=== PATIENT | male | born 1980 | race African-American/Black ===

== ENCOUNTER 2021-07-16 16:45 | Inpatient (IN) | payer SELFPAY ==
[~2021-07-16] VITALS: Ht 185.4 cm; Wt 78.8 kg
[2021-07-16] MEDS ORDERED: ISOVUE-370 76% 100ML VIAL As Ordered ONE (20:58)
[2021-07-16 21:03] LABS: BASO % 0.2 % (0.0-1.0); EOS # 0.1 10^3/uL (0.0-0.5); EOS % 0.7 % (0.0-3.0); HEMATOCRIT 43.8 % (42.0-52.0); HEMOGLOBIN 14.2 g/dl (13.5-17.5); LYMPH # 2.5 10^3/uL (1.5-5.0); LYMPH % 13.3 % (24.0-44.0); MEAN CORPUSCULAR HEMOGLOBIN 25.4 pg (27.0-33.0); MEAN CORPUSCULAR HGB CONC 32.4 g/dl (32.0-36.5); MEAN CORPUSCULAR VOLUME 78.4 fl (80.0-96.0); MONO # 1.3 10^3/uL (0.0-0.8); MONO % 7.3 % (2.0-8.0); NEUTROPHILS # 14.4 10^3/uL (1.5-8.5); NEUTROPHILS % 78.1 % (36.0-66.0); PLATELET COUNT, AUTOMATED 497 10^3/uL (150-450); RED BLOOD COUNT 5.59 10^6/uL (4.30-6.10); WHITE BLOOD COUNT 18.4 10^3/uL (4.0-10.0)
[2021-07-16 21:27] LABS: ERYTHROCYTE SEDIMENTATION RATE 17 mm/hr (0-15)
[2021-07-16 21:34] LABS: ALT/SGPT 18 U/L (12-78); BILIRUBIN,TOTAL 0.4 MG/DL (0.2-1.0); BLOOD UREA NITROGEN 13 MG/DL (7-18); C REACTIVE PROTEIN QUANTITATIV 5.24 MG/DL (0.00-0.30); CALCIUM LEVEL 8.9 MG/DL (8.5-10.1); CARBON DIOXIDE LEVEL 28 MEQ/L (21-32); CHLORIDE LEVEL 104 MEQ/L (98-107); CREATININE FOR GFR 0.93 MG/DL (0.70-1.30); GLOMERULAR FILTRATION RATE > 60.0 (>60); GLUCOSE, FASTING 90 MG/DL (70-100); POTASSIUM SERUM 4.5 MEQ/L (3.5-5.1); SODIUM LEVEL 136 MEQ/L (136-145); TOTAL PROTEIN 7.7 GM/DL (6.4-8.2)
--- NOTE | 2021-07-16 23:13 | REPVR ---
PROCEDURE INFORMATION: Exam: CT Pelvis With Contrast Exam date and time: 07/16/2021 10:05 PM Age: 41 years old Clinical indication: Perianal pain; Additional info: Kay-rectal abscess bilat TECHNIQUE: Imaging protocol: Computed tomography images of the pelvis with intravenous contrast. Radiation optimization: All CT scans at this facility use at least one of these dose optimization techniques: automated exposure control; mA and/or kV adjustment per patient size (includes targeted exams where dose is matched to clinical indication); or iterative reconstruction. Contrast material: ISOVUE 370; Contrast volume: 100 ml; Contrast route: INTRAVENOUS (IV); COMPARISON: No relevant prior studies available. FINDINGS: Stomach and bowel: No bowel dilatation is noted. Appendix: A normal appendix is seen. Intraperitoneal space: Unremarkable. No free air. No significant fluid collection. Lymph nodes: Unremarkable. No enlarged lymph nodes. Urinary bladder: Normal. No mass. Reproductive: Normal as visualized. Bones/joints: The osseous structures appear to be intact. No fracture or erosion is noted. There is some degenerative change at the sacrococcygeal junction. Soft tissues: Perianal abscess posteriorly extending to the tip of the coccyx with a collection anterior just caudal to the coccygeal tip measuring approximately the 14 x 18 mm in diameter. Some collections of gas are noted. The abscess divides into some tracts with inflammatory confluence extending along the medial left buttocks and stranding which extends to the medial aspect of the left gluteus stephanie muscle. The foci of gas suggest a perianal fistula. On the right, there is a tract containing gas which extends along the medial aspect of the right gluteal musculature and then divergent is back into the medial right buttocks with an abscess collection measuring 3.0 x 2.2 x 3.6 cm. There is overlying skin thickening and infiltration of the surrounding gluteal fat. IMPRESSION: Posterior perianal abscess which extends cephalad to the tip of the coccyx and caudally extends into the medial aspect of the buttocks bilaterally. There is inflammatory thickening and confluence on the left without fluid collections. Foci of gas are noted which may reflect perianal fistula. There is an abscess in the caudal medial right buttocks just beneath the skin with a tract which extends from the perianal region along the medial aspect of the gluteus stephanie and then into the subcutaneous abscess which measures approximately 3.0 x 2.2 x 3.6 cm. Electronically signed by: Vivek Cherry On 07/16/2021 23:13:32 PM
[2021-07-16] MEDS ORDERED: MORPHINE 2 MG/ML 1ML VIAL (J2270) IV ONE (23:35)
[2021-07-16] MEDS ORDERED: CIPROFLOXACIN 400 MG in IV 1 EA IV ONE (23:35)
[2021-07-16] MEDS ORDERED: metroNIDAZOLE 500 MG in IV 1 EA IV ONE (23:50)
[2021-07-17] VITALS (7 sets, daily range): BP systolic 98–122; BP diastolic 58–88
[2021-07-17] MEDS ORDERED: MOM 30ML SUSPENSION UDC PO PRN (01:15)
[2021-07-17] MEDS ORDERED: ACETAMINOPHEN TAB 650MG DOSE (2X325MG) PO PRN (01:15)
[2021-07-17] MEDS ORDERED: MAALOX 30 ML SUSP *UDC PO PRN (01:15)
--- NOTE | 2021-07-17 01:17 | HPEPDOC ---
[facility] Medical History & Physical Date of Admission Jul 17, 2021 Date of Service: Jul 17, 2021 History and Physical CHIEF COMPLAINT: Rectal pain HISTORY OF PRESENT ILLNESS: 41-year-old male with a past medical history of rec urrent perianal abscesses presents to the ER with approximately a 3 to 4-day history of lower abdominal and perirectal pain. He is afebrile slightly tachycardic at 109 with a blood pressure of 185/105. Found to have a white count of 18.4. ESR 17. CMP within normal limits. Pelvic CT shows a posterior perianal abscess which extends to the tip of the coccyx and caudally extends into the medial aspect of the buttocks bilaterally. Foci of gas are noted which can represent perianal fistula. Finally there is an abscess in the caudal medial right buttocks beneath the skin with a tract which extends from the perianal region to the medial aspect of the gluteus stephanie and then into the subcutaneous abscess measuring approximately 3 x 2.2 x 3.6 cm. Patient was given Flagyl and ciprofloxacin in the ER. Dr. Manjarrez was consulted. Patient will be made n.p.o. admitted to hospitalist service. PAST MEDICAL HISTORY: Nicotine dependence Recurrent perianal abscesses PAST SURGICAL HISTORY: Drainage of perianal abscess SOCIAL HISTORY: Active smoker, 1 ppd. Patient denies etoh use Patient denies illicit drug use . ALLERGIES: Please see below. REVIEW OF SYSTEMS: 10 point ROS conducted, relevant findings are noted in HPI. HOME MEDICATIONS: Please see below. PHYSICAL EXAMINATION: VITAL SIGNS: please see below General: NAD, comfortable HEENT: PERRLA, EOMI, sclerae clear Neck: supple, normal ROM, no JVD Respiratory: lungs CTAB, no wheeze, no rales, no crackles CVS: RRR, normal S1, S2, no murmurs Abdo: soft, no masses, no hepatosplenomegaly, BS+, no rebound tenderness Extremities: no edema, pulses 2+ MSK: no joint deformities, normal ROM Neuro: no focal neuro deficits, moving all 4 extremities, CN2-12 intact. Strength 5/5 in all 4 extremities. No nystagmus. Psych: calm, cooperative, AAO x 3 LABORATORY DATA: See below. IMAGING: CT pelvis with IV contrast on 07/16/2021: FINDINGS: Stomach and bowel: No bowel dilatation is noted. Appendix: A normal appendix is seen. Intraperitoneal space: Unremarkable. No free air. No significant fluid collection. Lymph nodes: Unremarkable. No enlarged lymph nodes. Urinary bladder: Normal. No mass. Reproductive: Normal as visualized. Bones/joints: The osseous structures appear to be intact. No fracture or erosion is noted. There is some degenerative change at the sacrococcygeal junction. Soft tissues: Perianal abscess posteriorly extending to the tip of the coccyx with a collection anterior just caudal to the coccygeal tip measuring approximately the 14 x 18 mm in diameter. Some collections of gas are noted. The abscess divides into some tracts with inflammatory confluence extending along the medial left buttocks and stranding which extends to the medial aspect of the left gluteus stephanie muscle. The foci of gas suggest a perianal fistula. On the right, there is a tract containing gas which extends along the medial aspect of the right gluteal musculature and then divergent is back into the medial right buttocks with an abscess collection measuring 3.0 x 2.2 x 3.6 cm. There is overlying skin thickening and infiltration of the surrounding gluteal fat. IMPRESSION: Posterior perianal abscess which extends cephalad to the tip of the coccyx and caudally extends into the medial aspect of the buttocks bilaterally. There is inflammatory thickening and confluence on the left without fluid collections. Foci of gas are noted which may reflect perianal fistula. There is an abscess in the caudal medial right buttocks just beneath the skin with a tract which extends from the perianal region along the medial aspect of the gluteus stephanie and then into the subcutaneous abscess which measures approximately 3.0 x 2.2 x 3.6 cm. MICROBIOLOGY: Please see below. ASSESSMENT: 41-year-old male with a past medical history of recurrent perianal abscesses presents with lower abdominal and rectal pain along with a white count of 18. CT of the pelvis showing complex perianal abscess with fistulous tracts. Patient be admitted with surgical consultation. Started on ciprofloxacin and Flagyl. Patient will be n.p.o. for possible operative management in the morning. . PLAN: SIRS secondary to perianal abscess: Abscess culture sent. Patient started on ciprofloxacin and Flagyl. Blood culture sent. Surgical consultation with Dr. Manjarrez. Patient is n.p.o. for possible debridement/I&D in the morning. HTN: BP 180 systolic. Suspect elevated 2/2 pain. Titrate as needed. dispo: admission expect to last > 2 midnights Vital Signs Vital Signs Date Time Temp Pulse Resp B/P (MAP) Pulse Ox O2 Delivery O2 Flow Rate FiO2 07/17/21 00:22 16 98 Room Air 07/16/21 16:46 98.4 109 185/105 (131) Laboratory Data Labs 24H Laboratory Tests 2 07/16/21 20:54: Immature Granulocyte % (Auto) 0.4, Neutrophils (%) (Auto) 78.1H, Lymphocytes (%) (Auto) 13.3L, Monocytes (%) (Auto) 7.3, Eosinophils (%) (Auto) 0.7, Basophils (%) (Auto) 0.2, Neutrophils # (Auto) 14.4H, Lymphocytes # (Auto) 2.5, Monocytes # (Auto) 1.3H, Eosinophils # (Auto) 0.1, Basophils # (Auto) 0.0, Nucleated Red Blood Cells % (auto) 0.0, Erythrocyte Sedimentation Rate 17H, Anion Gap 4L, Glomerular Filtration Rate > 60.0, Calcium Level 8.9, Total Bilirubin 0.4, Aspartate Amino Transf (AST/SGOT) 23, Alanine Aminotransferase (ALT/SGPT) 18, Alkaline Phosphatase 88, C-Reactive Protein, Quantitative 5.24H, Total Protein 7.7, Albumin 3.0L, Albumin/Globulin Ratio 0.6 07/17/21 00:31: CBC/BMP Laboratory Tests 07/16/21 20:54 Microbiology Microbiology 07/16/21 Abscess Culture, Received Pending Home Medications No Active Prescriptions or Reported Meds Allergies Coded Allergies: No Known Allergies (Unverified , 07/16/21) MAXIMUS MI MD Jul 17, 2021 01:16
[2021-07-17] MEDS ORDERED: HOME MED LIST COMPLETE! XX SCH (02:25)
[2021-07-17] MEDS ORDERED: oxyCODONE 5MG TAB PO PRN ×2 (02:40→20:40)
[2021-07-17] MEDS ORDERED: MORPHINE 2 MG/ML 1ML VIAL (J2270) IV PRN (02:40)
[2021-07-17 06:16] LABS: BASO # 0.1 10^3/uL (0.0-0.2); BASO % 0.3 % (0.0-1.0); EOS # 0.1 10^3/uL (0.0-0.5); EOS % 0.7 % (0.0-3.0); HEMOGLOBIN 14.4 g/dl (13.5-17.5); MEAN CORPUSCULAR HEMOGLOBIN 25.4 pg (27.0-33.0); MEAN CORPUSCULAR HGB CONC 32.7 g/dl (32.0-36.5); MEAN CORPUSCULAR VOLUME 77.5 fl (80.0-96.0); MONO # 1.4 10^3/uL (0.0-0.8); MONO % 8.1 % (2.0-8.0); NEUTROPHILS % 73.3 % (36.0-66.0); PLATELET COUNT, AUTOMATED 518 10^3/uL (150-450); RED BLOOD COUNT 5.68 10^6/uL (4.30-6.10); WHITE BLOOD COUNT 17.8 10^3/uL (4.0-10.0)
[2021-07-17 06:38] LABS: ALBUMIN 2.9 GM/DL (3.2-5.2); ALT/SGPT 17 U/L (12-78); BILIRUBIN,TOTAL 0.5 MG/DL (0.2-1.0); BLOOD UREA NITROGEN 10 MG/DL (7-18); CALCIUM LEVEL 8.9 MG/DL (8.5-10.1); CARBON DIOXIDE LEVEL 27 MEQ/L (21-32); CHLORIDE LEVEL 102 MEQ/L (98-107); CREATININE FOR GFR 0.92 MG/DL (0.70-1.30); GLOMERULAR FILTRATION RATE > 60.0 (>60); GLUCOSE, FASTING 95 MG/DL (70-100); MAGNESIUM LEVEL 2.3 MG/DL (1.8-2.4); SODIUM LEVEL 136 MEQ/L (136-145); TOTAL PROTEIN 7.7 GM/DL (6.4-8.2)
[2021-07-17 06:39] LABS: INR 1.1; PROTHROMBIN TIME 14.7 SECONDS (12.7-14.5)
[2021-07-17] MEDS: metroNIDAZOLE 500 MG in IV 1 EA IV SCH ×3 (08:13→23:50)
--- NOTE | 2021-07-17 08:39 | CR.PDOC ---
General Surgery Consultation Date of Consultation 07/17/21 History and Physical CONSULT REPORT FOR: Dr. Valadez (hospitalist service) REASON FOR CONSULTATION: Bilateral perianal abscess HISTORY OF PRESENT ILLNESS: Patient is a 41-year-old male with history of recurrent perianal abscess who presented to the emergency room last night and subsequently admitted reporting a 3 to 4-day history of bilateral perirectal pain as well as 1 to 2-day history of drainage. He reports recurrent perianal abscess for the past 5 years about 2 ti mes a year. This usually will progress to spontaneous drainage with resolution of his symptoms. He denies any chronic drainage from any of this abscesses. He has never been seen in an emergency room setting nor in an outpatient surgical setting. No prior I&D's done. He denies any significant history for Crohn's disease, either familial or personal. He denies any chronic diarrhea or severe constipation. This episode has been ongoing for about 3 or 4 days. He reports drainage from the left side for the past day or so. He denies any fevers or chills. He reports severe discomfort, unable to sit down or lay on his buttocks area. In the emergency room he was evaluated and found to have elevated white cell count of 18.[address] findings of bilateral perianal abscess, possible horseshoe abscess. He has been started on IV antibiotics and was awaiting my evaluation for possible incision and drainage. PAST MEDICAL HISTORY: Denies any chronic medical problems. PAST SURGICAL HISTORY: INCLUDES: ALLERGIES: Please see below. FAMILY HISTORY: Denies any family history for Crohn's disease, inflammatory bowel disease. HOME MEDICATIONS: Please see below. REVIEW OF SYSTEMS: GENERAL: Denies any weight loss, fevers or chills HEENT: Denies any vision problems, hearing problems NECK: Denies any neck pain CARDIOVASCULAR: Denies chest pain and palpitations. MUSCULOSKELETAL: Denies arthralgias, back pain SKIN: Denies rash. NEUROLOGIC: Denies headache, weakness PSYCHIATRIC: Denies anxiety and depression. ENDOCRINE: Denies history of diabetes, polydipsia, polyphagia, polyuria. HEMATOLOGY/ONCOLOGY: Denies bleeding or clotting disorder. PULMONARY: Denies chronic cough, dyspnea and wheezing. GASTROINTESTINAL: See HPI no prior colonoscopies. GENITOURINARY: Denies dysuria, frequency, hematuria and nocturia. INFECTIOUS: Denies any recent upper respiratory tract infection, UTI, need for use of antibiotics. NUTRITION: Reports good appetite. PHYSICAL EXAMINATION: VITALS SIGNS: Please see below. GENERAL APPEARANCE: Patient seen laying on his stomach, not ill-appearing, mildly uncomfortable with movement.; Overall thin body habitus, does not look chronically ill SKIN: Warm and dry HEENT: Normal inspection LUNGS: Clear to auscultation bilaterally. HEART: Regular heart rate and rhythm. ABDOMEN: Abdomen is soft, benign, nontender, nondistended PERIANAL EXAM: No gross erythema around the buttock area but there are several years separate or congruent areas of soft tissue induration along both right and left perianal area which are tender on touch. He is nontender at the midline, coccygeal area. No noticeable erythema, skin thickening. There appears to be some chronic appearing scars from prior abscess, drainage. Due to the discomfort, the anal verge is not sufficiently visible or palpable. EXTREMITIES: No deformities, edema ANCILLARIES: WBC 18.4 CRP 5.24 LABORATORY DATA: Please see below. IMAGING STUDIES: Patient is CT pelvis I reviewed the images. He has a complex appearing skin and soft tissue induration as well as abscess collection primarily on the right side which may also have a midline component. 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 I will bring the patient to the operating room for examination under anesthesia, drain the abscess. I explained to him he may have 2 or more incision sites or wound openings. I suspect possibility of a horseshoe abscess as bilateral presentation is usually not common unless the patient has perianal Crohn's disease which he denies. He is quite uncomfortable on my examination. He does not look to be ill-appearing not having any signs of severe inflammatory response from this. I discussed with the patient the details of the proposed procedure, the benefits of performing the procedure, the most common risks on doing the procedure. This may include chronic wounds, possibility of perianal fistula, need for multiple surgeries for drainage, bleeding. Consent obtained from patient. Vital Signs Vital Signs Date Time Temp Pulse Resp B/P (MAP) Pulse Ox O2 Delivery O2 Flow Rate FiO2 07/17/21 08:13 18 Room Air 07/17/21 06:00 99.2 100 116/88 (97) 100 I&Os I&O- Last 24 Hours up to 6 AM 07/17/21 06:00 Intake Total 205 ml Balance 205 ml Laboratory Data Labs 24H Laboratory Tests 2 07/16/21 20:54: Immature Granulocyte % (Auto) 0.4, Neutrophils (%) (Auto) 78.1H, Lymphocytes (%) (Auto) 13.3L, Monocytes (%) (Auto) 7.3, Eosinophils (%) (Auto) 0.7, Basophils (%) (Auto) 0.2, Neutrophils # (Auto) 14.4H, Lymphocytes # (Auto) 2.5, Monocytes # (Auto) 1.3H, Eosinophils # (Auto) 0.1, Basophils # (Auto) 0.0, Nucleated Red Blood Cells % (auto) 0.0, Erythrocyte Sedimentation Rate 17H, Anion Gap 4L, G lomerular Filtration Rate > 60.0, Calcium Level 8.9, Total Bilirubin 0.4, Aspartate Amino Transf (AST/SGOT) 23, Alanine Aminotransferase (ALT/SGPT) 18, Alkaline Phosphatase 88, C-Reactive Protein, Quantitative 5.24H, Total Protein 7.7, Albumin 3.0L, Albumin/Globulin Ratio 0.6 07/17/21 00:31: Coronavirus (COVID-19)(PCR) NEGATIVE 07/17/21 05:48: Immature Granulocyte % (Auto) 0.6, Neutrophils (%) (Auto) 73.3H, Lymphocytes (%) (Auto) 17.0L, Monocytes (%) (Auto) 8.1H, Eosinophils (%) (Auto) 0.7, Basophils (%) (Auto) 0.3, Neutrophils # (Auto) 13.0H, Lymphocytes # (Auto) 3.0, Monocytes # (Auto) 1.4H, Eosinophils # (Auto) 0.1, Basophils # (Auto) 0.1, Nucleated Red Blood Cells % (auto) 0.0, Anion Gap 7L, Glomerular Filtration Rate > 60.0, Calcium Level 8.9, Total Bilirubin 0.5, Aspartate Amino Transf (AST/SGOT) 16, Alanine Aminotransferase (ALT/SGPT) 17, Alkaline Phosphatase 91, Total Protein 7.7, Albumin 2.9L, Albumin/Globulin Ratio 0.6, Prothrombin Time 14.7H, Prothromb Time International Ratio 1.10, Magnesium Level 2.3 CBC/BMP Laboratory Tests 07/16/21 20:54 07/17/21 05:48 Microbiology Microbiology 07/17/21 Blood Culture, Received Pending 07/16/21 Abscess Culture, Received Pending Home Medications No Active Prescriptions or Reported Meds Allergies Coded Allergies: No Known Allergies (Unverified , 07/16/21) IRIS TOLEDO MD Jul 17, 2021 08:39
[2021-07-17] MEDS ORDERED: KETOROLAC 30 MG/ML 1ML VIAL IV PRN (08:40)
[2021-07-17] MEDS ORDERED: MORPHINE 30 MG TAB **MSIR PO PRN (09:00)
[2021-07-17] MEDS ORDERED: MORPHINE 15 MG SA TAB PO ONE (09:00)
[2021-07-17] MEDS ORDERED: KETOROLAC 30 MG/ML 1ML VIAL IV ONE (09:00)
[2021-07-17] MEDS: CIPROFLOXACIN 400 MG in IV 1 EA IV SCH ×2 (09:33→21:29)
[2021-07-17] MEDS ORDERED: SUGAMMADEX SODIUM 500 MG/5 ML VIAL (BRIDION) As Ordered ONE (19:00)
[2021-07-17] MEDS ORDERED: ONDANSETRON 4MG/2ML VIAL As Ordered ONE (19:00)
[2021-07-17] MEDS ORDERED: fentaNYL 100 MCG/2 ML INJECTION (J3010) As Ordered ONE (19:00)
[2021-07-17] MEDS ORDERED: ROCURONIUM BROMIDE 50 MG/5 ML VIAL As Ordered ONE (19:00)
[2021-07-17] MEDS ORDERED: dexameTHASONE 4 MG/ML 1ML VIAL (J1100 PER 1MG) As Ordered ONE (19:00)
[2021-07-17] MEDS ORDERED: propofoL 200 MG/20 ML VIAL As Ordered ONE (19:00)
[2021-07-17] MEDS ORDERED: MIDAZOLAM INJ 2MG/2ML VIAL (J2250 PER 1MG) As Ordered ONE (19:00)
[2021-07-17] MEDS ORDERED: LIDOCAINE 2% 100MG/5ML SDV (FOR ANES.) As Ordered ONE (19:00)
[2021-07-17] MEDS ORDERED: BUPIVACAINE LIPOSOME/PF 1.3% 20ML VIAL (13.3MG/ML)(EXPAREL)(C9290 PER1MG) As Ordered ONE (19:28)
[2021-07-17] MEDS ORDERED: BUPIVACAINE HCL 0.25% 10ML VIAL As Ordered ONE (19:28)
[2021-07-17] MEDS ORDERED: ESMOLOL INJ 100MG/10ML VIAL As Ordered ONE (19:36)
[2021-07-17] MEDS ORDERED: ACETAMINOPHEN 1000MG 100ML IV BTL (OFIRMEV) (J0131 PER 10MG) As Ordered ONE (19:45)
[2021-07-17] MEDS ORDERED: METOCLOPRAMIDE INJ 10MG/2ML VIAL (J2765 PER 1) IV PRN (20:40)
[2021-07-17] MEDS ORDERED: fentaNYL 100 MCG/2 ML INJECTION (J3010) IV PRN (20:40)
[2021-07-17] MEDS ORDERED: LR 1,000 ML IV SCH (20:40)
[2021-07-17] MEDS ORDERED: ONDANSETRON 4MG/2ML VIAL IV PRN (20:40)
[2021-07-17] MEDS: MORPHINE 15 MG SA TAB PO SCH (21:30)
[2021-07-18 00:50] VITALS: BP 101/57
[2021-07-18 01:50] VITALS: BP 95/59
[2021-07-18 06:00] VITALS: BP 99/58
--- NOTE | 2021-07-18 07:42 | ROOPDOC ---
[facility] Report Of Operation Report of Operation DATE OF PROCEDURE: 07/18/21 PREPROCEDURE DIAGNOSES: bilateral perianal abscess. 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 PROCEDURE PERFORMED: Exam under anesthesia, drainage of multifocal bilateral perianal abscess. SURGEON: Reese Manjarrez MD ANESTHESIA: General Endotracheal Anesthesia. ESTIMATED BLOOD LOSS: Approximately 20 mL. COMPLICATIONS: none. REMARKS: 41-year-old male with chronic and recurrent drainage from very anal abscesses. FINDINGS: Multiple pockets of abscess bilaterally, chronic scars from prior abscesses. SPECIMENS REMOVED: Gram stain and culture of the abscess done DESCRIPTION OF PROCEDURE: Patient has been receiving scheduled doses of antibiotics for his malgorzata anal abscess since his presentation to the emergency room last evening. He has been getting ciprofloxacin 400 mg IV every 12 hours and metronidazole 500 mg every 8 hours. He was brought to the operating room, monitoring leads were placed, oxygen provided, bilateral sequential compression devices placed on both lower extremities for DVT prophylaxis. General endotracheal anesthesia established and then he was transferred in the prone position with pressure points padded on the procedure table. His buttocks were taped apart and the buttocks, lower leg and posterior thigh was then prepped and draped in the usual sterile fashion. We paused for a surgical timeout using both pre-incision safety checklist to verify correct patient, procedure site and additional clinical information prior to beginning the procedure On initial examination the bilateral medial aspect of the buttocks and both sides appears scarred in, boggy. The left worse than the right. The right appears fluctuant. The left side has multiple areas of scar, skin thickening an d small skin breakdowns where there is purulent drainage along the prior scars. The skin and subcutaneous thickening seems to extend slightly towards the posterior or coccygeal side. He has prominent skin tags especially at the posterior midline at the anal verge. Lax sphincter tone noted. I was also seeing some purulent material come out through the anal verge as well as some small skin openings from the thinning and skin breakdown on both sides of the buttocks. I inserted an anal speculum to look inside of the anal canal and the internal opening of the fistula seems much deeper closer to the rectum than the typical location just inside of the dentate line port and intersphincteric abscess on the right side. I initially worked on the left side where he has 2 particular areas where there is a small amount of purulent drainage. I infiltrated the area with a mixture of Exparel and 1 4% Marcaine. I made a cruciate incision at the more superior boggy area closer to the coccyx. The skin is thickened. I went got into the abscess cavity but only got a small amount of drainage. I then may separate incision fluid were there is more fluctuance. I deepened this and got into the cavity and inserted the suction get some more drainage from the area. I actually got more drainage from both opening while putting pressure from the rectum internally outward. I looked again inside and I did not see any internal opening from the left side. I made a separate incision on the right side and got more drainage as this is no fluctuance. He get into a cavity about 4 x 4 cm. Looking through the anal speculum I could not see any internal opening deep into the rectum. I then irrigated all 3 areas. This was then packed with 1/2 inch iodoform gauze. Placed bulky gauze dressing on top of this and. On the way to hold things in place. He was promptly awakened extubated and brought to recovery room in stable condition. REESE MANJARREZ MD Jul 18, 2021 07:42
[2021-07-18] MEDS: metroNIDAZOLE 500 MG in IV 1 EA IV SCH (08:29)
[2021-07-18] MEDS: MORPHINE 15 MG SA TAB PO SCH (08:29)
[2021-07-18] MEDS: CIPROFLOXACIN 400 MG in IV 1 EA IV SCH (08:29)
--- NOTE | 2021-07-18 08:34 | IPNPDOC ---
Text Note Date of Service The patient was seen on 07/18/21. NOTE General surgery. Dr. 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 Manjarrez. This morning, the patient states pain is controlled states the area is feeling much better. Afebrile. VSS Awake and alert, resting comfortably in bed Lungs clear to auscultation S1-S2 regular rate rhythm Abdomen soft, nontender No edema Abscess culture pending. 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 Manjarrez. The patient is anxious for discharge today. Antibiotics as per hospitalist Would recommend daily sitz bath with changing of packing daily. Outpatient follow-up in 2 weeks, will plan to arrange outpatient referral to colorectal surgery in [place]. VS,Fishbone, I+O VS, Fishbone, I+O Vital Signs Date Time Temp Pulse Resp B/P (MAP) Pulse Ox O2 Delivery O2 Flow Rate FiO2 07/18/21 08:29 18 Room Air 07/18/21 06:00 98.3 72 99/58 (72) 96 I&O- Last 24 Hours up to 6 AM 07/18/21 05:59 Intake Total 1780 ml Output Total 20 ml Balance 1760 ml Brie King Jul 18, 2021 08:34
[2021-07-18 10:00] VITALS: BP 149/119
[2021-07-18 10:19] VITALS: BP 116/60
[2021-07-18] MEDS ORDERED: CIPR-249 PO (10:22)
[2021-07-18] MEDS ORDERED: FLAG500T PO (10:22)
[2021-07-18] MEDS ORDERED: MSIR30TA PO (10:28)
--- NOTE | 2021-07-18 11:54 | DS.PDOC ---
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 MANJARREZ [facility] COURSE: 1-year-old male with a past medical history of recurrent perianal abscesses presents to the ER with approximately a 3 to 4-day history of lower abdominal and perirectal pain. He was afebrile but tachycardic at 109 with a blood pressure of 185/105. Found to have a white count of 18.4. ESR 17. CMP within normal limits. Pelvic CT shows a posterior perianal abscess which extends to the tip of the coccyx and caudally extends into the medial aspect of the buttocks bilaterally. Foci of gas are noted which can represent perianal fistula. Finally there is an abscess in the caudal medial right buttocks beneath the skin with a tract which extends from the perianal region to the medial aspect of the gluteus stephanie and then into the subcutaneous abscess measuring approximately 3 x 2.2 x 3.6 cm. Patient was given Flagyl and ciprofloxacin in the ER. Dr. Manjarrez was consulted. Patient underwent surgical debridement, incision and drainage of multiple abscesses, and found to have fistula. Recommendations are to complete a full course of cipro, flagyl, daily packing changes, iodoform dressing, and warm sitz bath daily. Surgery will refer to colorectal surgery in [place] re: fistula ,and will see the pt in the office to discuss the biopsy report for possible crohn's disease. DISCHARGE MEDICATIONS: Please see below. ALLERGIES: Please see below. PHYSICAL EXAMINATION ON DISCHARGE: VITAL SIGNS: Please see below. GENERAL APPEARANCE: prone positioning no distress HEENT: no jvd moist mm LUNGS: Clear to auscultation bilaterally. HEART: Regular heart rate and rhythm. ABDOMEN: Abdomen is soft, benign, nontender, nondistended PERIANAL EXAM: tender b/l perianal area, chronic scars. packing noted EXTREMITIES: No deformities, edema LABORATORY DATA: SEE CHART IMAGING: SEE CHART ACTIVITY: TOLERATED. MAY RETURN TO WORK ON WEDNESDAY JULY 21, 2021 W/O ACTIVITY RESTRICTIONS DIET: REGULAR DISCHARGE INSTRUCTIONS: WARM SITZ BATH DAILY DAILY PACKING CHANGES/ DRESSING CHANGES WITH IODOFORM COMPLETE CIPRO FLAGYL CALL YOUR SURGEON IF FEVER 100.4 OR HIGHER, INCREASED PUS ITEMS TO FOLLOWUP ON ON OUTPATIENT: GENERAL SURGERY TO REFER TO COLORECTAL SURGERY IN [place] RE: FISTULA DISCHARGE CONDITION: STABLE TIME SPENT ON DISCHARGE: 30 minutes. Vital Signs/I&Os Vital Signs Date Time Temp Pulse Resp B/P (MAP) Pulse Ox O2 Delivery O2 Flow Rate FiO2 07/18/21 10:19 116/60 (78) 07/18/21 10:00 98.4 89 17 98 Room Air I&O- Last 24 Hours up to 6 AM 07/18/21 06:00 Intake Total 2991 ml Output Total 20 ml Balance 2971 ml Laboratory Data Labs 24H Laboratory Tests 2 07/18/21 05:52: C-Reactive Protein, Quantitative 11.40H Microbiology Microbiology 07/17/21 Gram Stain - Final, Resulted 07/17/21 Abscess Culture, Resulted Pending 07/17/21 Anaerobic Culture, Resulted Pending 07/17/21 Blood Culture - Preliminary, Resulted No growth after 24 hours . All specim... 07/17/21 Blood Culture - Preliminary, Resulted No growth after 24 hours . All specim... 07/16/21 Abscess Culture, Received Pending Discharge Medications Scheduled Ciprofloxacin HCl (Cipro) 500 Mg Tablet, 500 MG PO BID Metronidazole (Flagyl) 500 Mg Tablet, 500 MG PO Q8H FOR 10 DAYS Scheduled PRN Morphine Sulfate (Morphine Sulfate) 30 Mg Tablet, 15 MG PO Q4HP PRN for SEVERE PAIN (PS 8-10) Allergies Coded Allergies: No Known Allergies (Unverified , 07/16/21) JESSY RODRIGUEZ MD Jul 18, 2021 11:54
[2021-07-18 12:48] LABS: BASO % 0.2 % (0.0-1.0); EOS % 0.1 % (0.0-3.0); HEMATOCRIT 40.1 % (42.0-52.0); LYMPH # 2.4 10^3/uL (1.5-5.0); LYMPH % 13.1 % (24.0-44.0); MEAN CORPUSCULAR HEMOGLOBIN 25.5 pg (27.0-33.0); MEAN CORPUSCULAR HGB CONC 32.4 g/dl (32.0-36.5); MEAN CORPUSCULAR VOLUME 78.8 fl (80.0-96.0); MONO # 1.4 10^3/uL (0.0-0.8); MONO % 7.9 % (2.0-8.0); NEUTROPHILS # 14.3 10^3/uL (1.5-8.5); NEUTROPHILS % 78.3 % (36.0-66.0); PLATELET COUNT, AUTOMATED 500 10^3/uL (150-450); RED BLOOD COUNT 5.09 10^6/uL (4.30-6.10); WHITE BLOOD COUNT 18.3 10^3/uL (4.0-10.0)
[2021-07-18 13:10] LABS: BLOOD UREA NITROGEN 10 MG/DL (7-18); CARBON DIOXIDE LEVEL 28 MEQ/L (21-32); CHLORIDE LEVEL 103 MEQ/L (98-107); CREATININE FOR GFR 0.88 MG/DL (0.70-1.30); GLOMERULAR FILTRATION RATE > 60.0 (>60); GLUCOSE, FASTING 96 MG/DL (70-100); POTASSIUM SERUM 4.3 MEQ/L (3.5-5.1); SODIUM LEVEL 137 MEQ/L (136-145)
[2021-07-18 13:16] LABS: ERYTHROCYTE SEDIMENTATION RATE 31 mm/hr (0-15)
[2021-07-18 14:00] VITALS: BP 139/76
[2021-07-20 13:08] LABS: Chitobioside Carbohydrat (ACCA 98 units (0-90); Laminaribioside Carbohyd (ALCA 130 units (0-60); Mannobioside Carbohydrat (AMCA 170 units (0-100); Saccharomyces cerevisiae IgG A 73 units (0-50)
== END 2021-07-18 16:15 | disposition home health service (06) | DRG 226 ==
LOC: M ED 16:45 → M ED INP 16:46 → EEVIPCON 16:46 → ENRESERV 07-17 01:40 → M MS5PR 07-17 02:05
PROVIDERS: ADMIT Family Medicine; ATTEND General Practice
PROC: 0D9Q30Z Drainage of Anus with Drainage Device, Percutaneous Approach (ICD-10-PCS; principal; 2021-07-18)
DX: K61.0 Anal abscess (principal); F17.210 Nicotine dependence, cigarettes, uncomplicated; Z20.822 Contact with and (suspected) exposure to COVID-19

== ENCOUNTER 2022-06-29 10:04 | Emergency (ER) | payer MEDICAID, OTHER ==
[~2022-06-29] VITALS: Ht 185.4 cm; Wt 83.0 kg
[~2022-06-29 10:04] MED LIST: CIPR-249 PO; FLAG500T PO; MSIR30TA PO
[2022-06-29] MEDS ORDERED: NS 1,000 ML IV ONE (12:00)
[2022-06-29] MEDS ORDERED: ISOVUE-370 76% 100ML VIAL As Ordered ONE (12:23)
[2022-06-29 12:33] LABS: BASO % 0.3 % (0.0-1.0); EOS # 0.2 10^3/uL (0.0-0.5); EOS % 1.7 % (0.0-3.0); HEMATOCRIT 44.9 % (42.0-52.0); HEMOGLOBIN 14.3 g/dl (13.5-17.5); LYMPH # 2.9 10^3/uL (1.5-5.0); LYMPH % 23.3 % (24.0-44.0); MEAN CORPUSCULAR HEMOGLOBIN 26.2 pg (27.0-33.0); MEAN CORPUSCULAR HGB CONC 31.8 g/dl (32.0-36.5); MEAN CORPUSCULAR VOLUME 82.2 fl (80.0-96.0); MONO % 8.2 % (2.0-8.0); NEUTROPHILS # 8.1 10^3/uL (1.5-8.5); NEUTROPHILS % 66.2 % (36.0-66.0); PLATELET COUNT, AUTOMATED 453 10^3/uL (150-450); RED BLOOD COUNT 5.46 10^6/uL (4.30-6.10); WHITE BLOOD COUNT 12.3 10^3/uL (4.0-10.0)
[2022-06-29 13:02] LABS: ERYTHROCYTE SEDIMENTATION RATE 1 mm/hr (0-15)
[2022-06-29] MEDS ORDERED: AMPICILLIN SOD/SULBACTAM SOD 3 GM in D5W MINI-BAG PLUS 100 ML IV ONE (13:25)
[2022-06-29] MEDS ORDERED: AMOX875T2 PO (14:06)
[2022-06-29 14:55] VITALS: BP 130/74
== END 2022-06-29 15:09 | disposition home or self-care (01) ==
LOC: M ED 10:04
DX: K52.9 Noninfective gastroenteritis and colitis, unspecified (principal); F17.200 Nicotine dependence, unspecified, uncomplicated
CPT/HCPCS: 74177; 80047; 85025; 85652; 86140; 87070; 87077; 87186; 87205; 96361; 96365; 99283; J0295; Q9967

== ENCOUNTER 2023-08-22 10:57 | Emergency (ER) | payer MEDICAID, SELFPAY ==
[~2023-08-22] VITALS: Ht 188 cm; Wt 90.1 kg
[~2023-08-22 10:57] MED LIST changes: +AMOX875T2 PO
[2023-08-22 12:46] VITALS: BP 131/69; TEMP 98.5; O2SAT 98
[2023-08-22] MEDS ORDERED: KETOROLAC 60MG 2ML VIAL IM ONE (12:55)
[2023-08-22] MEDS ORDERED: CEPH500C PO (13:00)
[2023-08-22] MEDS ORDERED: KETO10TAB PO (13:02)
[2023-08-22] MEDS ORDERED: KETOROLAC TROMETHAMINE 10 MG TAB PO ONE (13:25)
== END 2023-08-22 13:43 | disposition home or self-care (01) ==
LOC: M ED 10:57
DX: L05.91 Pilonidal cyst without abscess (principal); F17.290 Nicotine dependence, other tobacco product, uncomplicated